=== PATIENT | male | born 1985 | race Caucasian/White ===

== ENCOUNTER 2016-05-06 07:08 | Emergency (ER) | payer BC, OTHER ==
[2016-05-06] MEDS ORDERED: NORMAL SALINE 10 ML SYRINGE FLUSH IVP PRN (07:30)
[2016-05-06] MEDS ORDERED: Sodium Chloride 0.9% 1,000 ML PRIMARY IV ONE (07:30)
[2016-05-06 08:06] LABS: BASOPHILS # (AUTO) 0.01 10*3/UL; BASOPHILS % (AUTO) 0.1 % (0-1); EOSINOPHILS % (AUTO) 0.1 % (0-8); IMM GRAN % (AUTO) 0.1 % (0-5); IMM GRAN# (AUTO) 0.01 10*3/UL; LYMPHOCYTES % (AUTO) 26.4 % (10-50)
[2016-05-06 08:10] LABS: BILIRUBIN,TOTAL 0.5 mg/dL (0.3-1.2); BUN/CREATININE RATIO 20.52 (6-20); CALCIUM 10.9 mg/dL (8.7-10.7); CREATININE 1.9 mg/dL (0.70-1.50); POTASSIUM 3.9 meq/L (3.8-5.2); TOTAL PROTEIN 6.1 g/dL (6.1-8.0)
[2016-05-06 08:11] LABS: HEMATOCRIT 38.8 % (42.0-52.0); HEMOGLOBIN 12.9 g/dL (14.0-18.0); LYMPHOCYTES # (AUTO) 2.39 10*3/uL; MEAN CORPUSCULAR HEMOGLOBIN 23.7 PG (27-31); MEAN CORPUSCULAR HGB CONC 33.2 g/dL (33-37); MONOCYTES # (AUTO) 1.22 10*3/UL (0.3-0.8); MONOCYTES % (AUTO) 13.5 % (5-15); NEUTROPHILS % (AUTO) 59.8 % (50-80); RDW COEFFICIENT OF VARIATION 16.8 % (11.5-14.5); RED BLOOD COUNT 5.44 10^6/uL (4.70-6.10); WHITE BLOOD COUNT 9.04 10^3/uL (4.8-10.8)
[2016-05-06 08:17] LABS: PLATELET MORPHOLOGY COMMENT NORMAL MORPHOLOGY (NORM)
[2016-05-06] MEDS ORDERED: LIDOCAINE HCL 2 % 10 ML JELLY URO-JECT TOPICAL ONE ×2 (08:41→11:08)
[2016-05-06 08:53] LABS: BILIRUBIN,URINE NEGATIVE (NEG); CLARITY,URINE CLOUDY (CLEAR); GLUCOSE, URINE (UA) NEGATIVE (NEG); LEUKOCYTE ESTERASE ,URINE MODERATE (NEG); NITRATE,URINE NEGATIVE (NEG); OCCULT BLOOD,URINE LARGE (NEG); PROTEIN,URINE >300 mg/dl (NEG); UROBILINOGEN,URINE 0.2 EU/dL (0.2)
--- NOTE | 2016-05-06 08:55 | PDOC ---
Male Genitourinary Problem HPI - General Chief Complaint: Genitourinary Complaint Stated Complaint: BLOOD IN URINE Date Seen by Provider: 05/06/16 Time Seen by Provider: 07:12 Source: POSITIVE: Other (Mother and father) Exam Limitations: POSITIVE: Physical impairment (Patient is autistic and has prominent mental developmental delay. He is nonverbal. Mother and father gave past medical history and review of systems.) Nurse's Notes Reviewed & Considered: Yes - History of Present Illness Initial Comments: The patient is a 31-year-old male who was brought to the emergency room by his mother and father, with home the patient lives. According to parents, the patient has a history of several congenital anomalies and is nonverbal. Mother states that the patient has "the mentality of a 4-year-old", and patient is nonverbal. Mother states the patient has autism. Mother states that the patient had a temperature of 101 a few days ago. This resolved, according to the mother, but for the past day or so the patient has been urinating frequently. The patient normally has nocturnal urinary incontinence, but the mother states that this is worsened last night. Mother states that she noted that the patient has had blood in his urine this evening and has "passed blood clots"in his urine this evening. 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 He does have a seizure disorder. 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 Child had a right ureteral reimplantation procedure done at 2 months of age. He's also had bilateral hip osteotomies and bilateral club feet surgery. Mother states that the patient has been somewhat more agitated than normal. Body Location Affected: REPORTS: Genitalia (Hematuria and urinary frequency as above) Timing: REPORTS: Gradual Duration: <24 hours Severity: Moderate Quality: REPORTS: Other (No definite pain) Context: DENIES: Drug Use, Lifting, Trauma, Recent Surgery, Other (please comment) Sexual History: REPORTS: Non-Contributory Associated Symptoms: REPORTS: Frequency, Blood in Urine Similar Symptoms Previously: No Recent Care Received: REPORTS: Denies Any Prior Injuries Related to Current Complaint?: No - Patient Home Medications Home Medications: Home Medications Somatropin [Nutropin Aq] 1.4 ml SUBCUT QD each 05/06/14 Testosterone Cypionate 10 mg IM WEEKLY #1 vial 10/20/14 Divalproex Sodium [Depakote] 1,000 mg PO BID tab 01/26/16 Epinephrine [Epipen 2-Wesley] 0.3 mg IM ONCE #1 ml 03/29/15 Ferrous Sulfate [Feosol Tab] 325 mg PO BID #180 tab 03/29/15 Hydrocortisone Sod Succinate [Solu-Cortef] 100 mg IM Q4-6H PRN #2 vial 03/29/15 Multivitamin [Multi-Vitamin Daily] 1 each PO QD #90 tab 03/29/15 Syringe W-O Needl,Insulin,1 ml [Luer-Jina Syringe] 1 each MC QD #30 box 03/29/15 Triamcinolone Acetonide 2 spr NS DAILY PRN #1 bottle 03/29/15 [place], Disposable [Hypodermic Needle] 1 each MC PRN #30 unit 03/30/15 Albuterol/Ipratrop Neb Soln [Duoneb Neb Soln] 1 vial NEB Q4-6HRSPRN #1 box 11/14 Gentamicin Sulfate 2 drp LEFT EYE Q6H #1 bottle 11/15/15 Hydrocortisone 5 mg PO QPM #90 tab 03/09/16 Hydrocortisone 10 mg PO QAM #90 tab 03/09/16 Levothyroxine Sodium 1 tab PO DAILY #30 tab 04/19/16 Acetaminophen 2 tab PO QAM PRN tab 05/01/16 Calcium Carbonate/Vitamin D3 [Calcium 600-Vit D3 800 Tablet] 1 each PO QAM tab 05/01/16 Cetirizine HCl [24hour Allergy] 10 mg PO QAM tab 05/01/16 Lactobacillus Combo No.11 [Probiotic] 1 each PO QD cap 05/01/16 [place]-3S/Dha/Epa/Fish Oil [Fish Oil 1,200 Mg Softgel] 1 each PO QAM cap Psyllium Husk [Psyllium Fiber] 0.52 gm PO QD cap 05/01/16 Vitamin K2 100 mcg PO QD tab 05/01/16 - Patient Allergies Allergies/Adverse Reactions: Allergies Allergy/AdvReac Type Severity Reaction Status Date / Time pertussis vaccine,adsorbed Allergy Severe anaphalaxyi Verified 05/06/16 07:11 s venom-honey bee Allergy Severe anaphalaxyi Verified 05/06/16 07:11 s prednisone AdvReac Intermediate rash Verified 05/06/16 07:11 testosterone AdvReac Intermediate severe Verified 05/06/16 07:11 anger and seizures Past Medical History - heen HEENT History: Denies History Cardiovascular History: Denies History Respiratory History: Pneumonia, Sleep Apnea Additional Respiratory History: chronic pneumonia, doesn't tolerate cpap Gastrointestinal History: Denies History Additional Genitourinary History: born with only R kidney, Has had ureter repair 2x Additional Endocrine History: Panhypopituitarism Prosthesis or Implant: No Additional Musculoskeletal History: kyphosis, scoliosis, planter fascitis, b/l club feet (repaired), mild arthritis, b/l hip and ankle malformation Neurological History: Seizures Additional Neurological History: autism, mental retardation, nonverbal Blood Disorders: Denies History Psychiatric History: Autism Cancer History: Denies History In Past Year Been Physically Harmed or Verbally Threatened: No History of MDRO: No Tobacco Use: Never Smoker Alcohol Use: None Substance Use Type: None Previous Surgical History: Yes Type / Date of Surgery: multiple repairs of duodenal atresia, bilateral ankle repair, aj osteotomy b/l hips, dental surgery, 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), VUR/ureter repair Significant Family History: No pertinent family hx Past Medical History Reviewed: Reviewed - No Changes ROS - Limitations ROS Limitations: No Limitations Constitution: REPORTS: Fever Cardiovascular: REPORTS: Denies Cardiac Symptoms Respiratory: REPORTS: Denies Resp Symptoms Neurological: REPORTS: Denies Neuro Symptoms Gastrointestinal: REPORTS: Denies GI Symptoms Endocrine: REPORTS: Denies Symptoms Musculoskeletal: REPORTS: Denies MS Symptoms Genitourinary: REPORTS: Denies Symptoms Eyes: REPORTS: Denies Symptoms ENT: REPORTS: Denies Symptoms Skin: REPORTS: Denies Skin Symptoms Lympathic: REPORTS: Denies Lympathic Symptoms Immunologic: POSITIVE: Denies Symptoms Psychiatric: POSITIVE: Denies Psych Symptoms Male Genitourinary Exam - General Appearance General Appearance: POSITIVE: Alert, No Acute Distress, No Evidence of Trauma, Uncooperative. NEGATIVE: Cooperative (Mental developmental delay and autism) - Abdomen Abdomen: Soft: (All Quadrants), Normal Bowel Sounds: (All Quadrants), Denies Tenderness: (All Quadrants), No Splenomegaly: (All Quadrants), No Hepatomegaly: (All Quadrants), No Guarding: (All Quadrants), No Rebound: (All Quadrants), No Palpable Pulse: (All Quadrants), No Palpabale Mass: (All Quadrants), No Distention: (All Quadrants), No Rigidity: (All Quadrants) - Genital / Rectal Genitals: POSITIVE: Normal Palp. of Testicles, Uncircumcised, Other ( Hypogonadism; uncircumcised; foreskin retracts easily). NEGATIVE: Urethral Discharge, Testicular Tenderness, Epididymal Tenderness, Scrotal Swelling, Hernia Mass, Examined While Standing - HEENT HEENT: POSITIVE: Head Inspection Nml, Eyes Inspection Nml, Ears Inspection Nml, Nose Inspection Nml, Oral/Dental Inspect. Nml, Pharynx Inspect. Nml, PERRL, EOMI - Neck Neck: POSITIVE: Normal Inspection, No Apparent Injury - Respiratory Respiratory: POSITIVE: No Respiratory Distress, Breath Sounds Normal, Chest Non- Tender - Cardiovascular Cardiovascular: POSITIVE: Regular Rate and Rhythm, Heart Sounds Normal, Equal Pulses, Strong Pulses Peripheral Pulses: Radial (R): 2+, Radial (L): 2+ - Back Back: POSITIVE: Normal Inspection. NEGATIVE: CVA Tenderness (L) - Extremities Extremity: Non-Tender: (All Extremities), Normal ROM: (All Extremities), Normal Inspection: (All Extremities) - Neurological / Psychological Neurological: POSITIVE: cost consultant Normal As Tested, Motor Normal, Other (Mental developmental delay, congenital) Male Genitourinary Progress - Results Reviewed by me Xrays/CTs/US Reviewed by me: Yes Radiology Findings: CT scan abdomen and pelvis without contrast ordered Lab Results Reviewed: Yes (CBC normal, BUN 39 and creatinine 1.9; on 06/01/2014 BUN was 32 and creatin) Lab Results: Laboratory Results 05/06/16 Range/Units 07:45 WBC 9.04 (4.8-10.8) 10^3/uL RBC 5.44 (4.70-6.10) 10^6/uL Hgb 12.9 L (14.0-18.0) g/dL Hct 38.8 L (42.0-52.0) % MCV 71.3 L (80-90) FL MCH 23.7 L (27-31) PG MCHC 33.2 (33-37) g/dL RDW Std Deviation 43.0 (39-50) fL RDW Coeff of Jair 16.8 H (11.5-14.5) % Plt Count 111 L (140-350) 10*3/uL Immature Gran % (Auto) 0.1 (0-5) % Neut % (Auto) 59.8 (50-80) % Lymph % (Auto) 26.4 (10-50) % [place] % (Auto) 13.5 (5-15) % Eos % (Auto) 0.1 (0-8) % Baso % (Auto) 0.1 (0-1) % Immature Gran # (Auto) 0.01 10*3/UL Neut # (Auto) 5.40 10*3/UL Lymph # (Auto) 2.39 10*3/uL [place] # (Auto) 1.22 H (0.3-0.8) 10*3/UL Eos # (Auto) 0.01 10*3/UL Baso # (Auto) 0.01 10*3/UL WBC Morphology Comment Normal morphology (NORM) Plt Morphology Comment Normal morphology (NORM) RBC Morph Comment Normal morphology (NORM) Sodium 135 (135-145) meq/L Potassium 3.9 (3.8-5.2) meq/L Chloride 97 L (98-112) meq/L Carbon Dioxide 29 (23-33) meq/L Anion Gap 9 (5-20) BUN 39 H (7-22) mg/dL Creatinine 1.9 H (0.70-1.50) mg/dL Estimated GFR 42 (>60 ml/min/1.73m(2)) BUN/Creatinine Ratio 20.52 H (6-20) Glucose 91 (78-110) mg/dL Calculated Osmolality 288.0 (267-292) mOsm/kg Calcium 10.9 H (8.7-10.7) mg/dL Total Bilirubin 0.5 (0.3-1.2) mg/dL AST 20 L (21-57) IU/L ALT 24 (21-72) IU/L Alkaline Phosphatase 38 (38-126) IU/L Total Protein 6.1 (6.1-8.0) g/dL Albumin 3.6 (3.5-4.8) g/dL Globulin 2.5 (2.50-4.10) g/dL Albumin/Globulin Ratio 1.40 (1.3-2.0) mg/g - Patient's Progress Pain Medication Addressed: POSITIVE: Not Applicable School/Work Release Addressed: POSITIVE: Not Applicable Re-Examine Time:: 09:00 Re-Examine Comment: Patient hydrated with a liter of normal saline. Catheterized urine specimen was grossly cloudy with some blood clot; urinalysis is pending. CBC is normal. CMP shows a BUN of 39 with a creatinine of 1.9, on 06/01/2014 BUN was 32 and creatinine is 1.3. CT scan abdomen and pelvis without contrast ordered; patient medicated with 2 mg of IV Ativan prior to being taken to CT scan. Patient turned over to ER physician, Dr. Ward, who comes on duty at 9 AM. Status: POSITIVE: Unchanged, Re-Examined - Consult Counseled: POSITIVE: Family, RE: Lab Results, RE: DX, RE: Need for F/U Patient Care Time - Estimated PCT Patient Care Time (In Minutes): 60 Vital Signs - Recent Vital Signs Vital Signs: Vital Signs (Last 8 hours) Temp Pulse Resp BP Pulse Ox 05/06/16 07:08 97.0 F 102 H 18 109/86 92 - VS Reviewed Vital Signs Reviewed: Yes Discharge Clinical Impression: Hematuria, Renal failure, Developmental delay, profound Condition: Fair Care Transferred To: , 9 AM, 05/06/2016
[2016-05-06] MEDS ORDERED: LORazepam 2 MG/1 ML VIAL IVP ONE ×2 (08:57→09:23)
[2016-05-06] MEDS ORDERED: LORazepam 2 MG/1 ML VIAL ONE (08:59)
[2016-05-06 09:11] LABS: URINE SAMPLE TYPE CATH SPECIMEN
[2016-05-06 09:13] LABS: BACTERIA,URINE FEW; RBC,URINE >100 /hpf; URINE CRYSTALS FEW; WBC,URINE 50-60
--- NOTE | 2016-05-06 09:23 | PDOC ---
Transfer of Care - Care Accepted Time Care Transferred: 09:19 Report from Transferring Physician Received: Yes MDM / ED Course: I assumed care of this patient at the end of Dr. Quinonez's shift. CBC was reviewed showing normal white count slight anemia with hemoglobin of 12. Potential metabolic panel showed a creatinine of 1.9 and a UA and a 39. His electrolytes were unremarkable liver functions were within normal limits. CT scan is pending. Patient has large amount of blood in his urine, and increased frequency of urination, which is the reason he presented here to the emergency department. He had fevers of 100 to 101 degrees 3 days ago but afebrile at this time. Patient has mental developmental delay, physical impairment, and is nonverbal. Mother has noticed blood in his urine. No apparent tenderness to his abdomen. For the remainder of history of present illness please see Dr. Quinonez's dictation. CT scan shows enlarged kidney on the right without hydronephrosis. There is an extrarenal right renal pelvis and dilation of the right ureter there is no focal stone identified. I discussed this patient with Dr. Bonilla, the business solution analyst urologist at [facility], who is suggesting patient needs to be scoped and possibly stented. With his congenital lack of left kidney and increasing creatinine or correction of his right kidney is imperative. Therefore we are transferring this patient to a higher level of care. I will able to contact Dr. Hartley, the on-call hospitalist at [facility]. She will be direct admitting this patient with Dr. Bonilla consulting. ER course: Patient had received Ativan prior to my assuming care. His oxygenation dropped and he was started on nonrebreather mask to keep his oxygen saturations in the 90s. He received IV ciprofloxacin, normal saline. He is being transferred in stable condition. Home Medications: Home Medications Somatropin [Nutropin Aq] 1.4 ml SUBCUT QD each 05/06/14 Testosterone Cypionate 10 mg IM WEEKLY #1 vial 10/20/14 Divalproex Sodium [Depakote] 1,000 mg PO BID tab 03/29/15 Epinephrine [Epipen 2-Wesley] 0.3 mg IM ONCE #1 ml 03/29/15 Ferrous Sulfate [Feosol Tab] 325 mg PO BID #180 tab 03/29/15 Hydrocortisone Sod Succinate [Solu-Cortef] 100 mg IM Q4-6H PRN #2 vial 03/29/15 Multivitamin [Multi-Vitamin Daily] 1 each PO QD #90 tab 03/29/15 Syringe W-O Needl,Insulin,1 ml [Luer-Jina Syringe] 1 each MC QD #30 box 03/29/15 Triamcinolone Acetonide 2 spr NS DAILY PRN #1 bottle 03/29/15 [place], Disposable [Hypodermic Needle] 1 each MC PRN #30 unit 03/30/15 Albuterol/Ipratrop Neb Soln [Duoneb Neb Soln] 1 vial NEB Q4-6HRSPRN #1 box 11/14 Gentamicin Sulfate 2 drp LEFT EYE Q6H #1 bottle 11/15/15 Hydrocortisone 5 mg PO QPM #90 tab 03/09/16 Hydrocortisone 10 mg PO QAM #90 tab 03/09/16 Levothyroxine Sodium 1 tab PO DAILY #30 tab 04/19/16 Acetaminophen 2 tab PO QAM PRN tab 05/01/16 Calcium Carbonate/Vitamin D3 [Calcium 600-Vit D3 800 Tablet] 1 each PO QAM tab 05/01/16 Cetirizine HCl [24hour Allergy] 10 mg PO QAM tab 05/01/16 Lactobacillus Combo No.11 [Probiotic] 1 each PO QD cap 05/01/16 [place]-3S/Dha/Epa/Fish Oil [Fish Oil 1,200 Mg Softgel] 1 each PO QAM cap Psyllium Husk [Psyllium Fiber] 0.52 gm PO QD cap 05/01/16 Vitamin K2 100 mcg PO QD tab 05/01/16 Allergies/Adverse Reactions: Allergies pertussis vaccine,adsorbed Allergy (Severe, Verified 05/06/16 07:11) anaphalaxyis venom-honey bee Allergy (Severe, Verified 05/06/16 07:11) anaphalaxyis prednisone Adverse Reaction (Intermediate, Verified 05/06/16 07:11) rash IV form; redness, irritation testosterone Adverse Reaction (Intermediate, Verified 05/06/16 07:11) severe anger and seizures testosterone enanthate- Vital Signs Reviewed: Yes Nurse's Notes Reviewed & Considered: Yes - Pending Patient Care Items Pending Patient Care Items: POSITIVE: CT / MRI Results - Expected Patient Outcome Tentative Impression of Patient: Hematuria and possible urinary tract infection Expected Disposition: POSITIVE: Home - Results Reviewed Lab Results: Laboratory Results 05/06/16 05/06/16 Range/Units 07:45 08:45 WBC 9.04 (4.8-10.8) 10^3/uL RBC 5.44 (4.70-6.10) 10^6/uL Hgb 12.9 L (14.0-18.0) g/dL Hct 38.8 L (42.0-52.0) % MCV 71.3 L (80-90) FL MCH 23.7 L (27-31) PG MCHC 33.2 (33-37) g/dL RDW Std Deviation 43.0 (39-50) fL RDW Coeff of Jair 16.8 H (11.5-14.5) % Plt Count 111 L (140-350) 10*3/uL Immature Gran % (Auto) 0.1 (0-5) % Neut % (Auto) 59.8 (50-80) % Lymph % (Auto) 26.4 (10-50) % [place] % (Auto) 13.5 (5-15) % Eos % (Auto) 0.1 (0-8) % Baso % (Auto) 0.1 (0-1) % Immature Gran # (Auto) 0.01 10*3/UL Neut # (Auto) 5.40 10*3/UL Lymph # (Auto) 2.39 10*3/uL [place] # (Auto) 1.22 H (0.3-0.8) 10*3/UL Eos # (Auto) 0.01 10*3/UL Baso # (Auto) 0.01 10*3/UL WBC Morphology Comment Normal morphology (NORM) Plt Morphology Comment Normal morphology (NORM) RBC Morph Comment Normal morphology (NORM) Sodium 135 (135-145) meq/L Potassium 3.9 (3.8-5.2) meq/L Chloride 97 L (98-112) meq/L Carbon Dioxide 29 (23-33) meq/L Anion Gap 9 (5-20) BUN 39 H (7-22) mg/dL Creatinine 1.9 H (0.70-1.50) mg/dL Estimated GFR 42 (>60 ml/min/1.73m(2)) BUN/Creatinine Ratio 20.52 H (6-20) Glucose 91 (78-110) mg/dL Calculated Osmolality 288.0 (267-292) mOsm/kg Calcium 10.9 H (8.7-10.7) mg/dL Total Bilirubin 0.5 (0.3-1.2) mg/dL AST 20 L (21-57) IU/L ALT 24 (21-72) IU/L Alkaline Phosphatase 38 (38-126) IU/L Total Protein 6.1 (6.1-8.0) g/dL Albumin 3.6 (3.5-4.8) g/dL Globulin 2.5 (2.50-4.10) g/dL Albumin/Globulin Ratio 1.40 (1.3-2.0) mg/g Ur Collection Type Cath specimen Urine Color Yellow Urine Clarity Cloudy (CLEAR) Urine pH 7.0 (5.0-8.5) Ur Specific [place] 1.020 (1.005-1.030) Urine Protein >300 (NEG) mg/dl Urine Glucose (UA) Negative (NEG) mg/dL Urine Ketones Negative (NEG) Urine Occult Blood Large H (NEG) Urine Nitrate Negative (NEG) Urine Bilirubin Negative (NEG) Urine Urobilinogen 0.2 (0.2) EU/dL Ur Leukocyte Esterase Moderate (NEG) Urine RBC >100 (NONE) /hpf Urine WBC 50-60 (NONE) Ur Squamous Epith Cells None (NONE) Ur Renal Epithelial Cell None (NONE) Urine Crystals Few Urine Bacteria Few (NONE) Urine Casts None (NONE) Urine Mucus None (NONE) Urine Trichomonas None (NONE) Urine Yeast None (NONE) Ur Culture Indicated? Culture set Patient Care Time - Estimated PCT Patient Care Time (In Minutes): 20 Vital Signs - Recent Vital Signs Vital Signs: Vital Signs (Last 8 hours) Temp Pulse Resp BP Pulse Ox 05/06/16 09:45 102 H 16 97 05/06/16 09:40 102 H 16 86 05/06/16 09:35 97.1 F 102 H 16 67 05/06/16 07:08 97.0 F 102 H 18 109/86 92 Discharge Clinical Impression: Hematuria, Renal failure, Developmental delay, profound Discharge Disposition: Transferred to Tertiary Care Facility Condition: Fair Follow Up With: GENO TRAMMELL [Primary Care Provider] - Date Decision to Transfer to Another Facility: 05/06/16 Time Decision to Transfer to Another Facility: 11:03
[2016-05-06 09:47] VITALS: RESP 16
--- NOTE | 2016-05-06 10:23 | DI ---
HISTORY: Hematuria. Patient is sedated. COMPARISON: None available. TECHNIQUE: Contiguous axial images of the abdomen and pelvis were obtained and submitted for interpr etation. FINDINGS: The patient has pectus carinatum. The sternum is partially unfused. Limited sections of the lung bases demonstrate no focal pulmonary mass. The unenhanced liver and spleen return a normal attenuation. The gallbladder is not clearly visualiz ed, and probably significantly collapsed. The pancreas is slightly bulky, and could benefit from laboratory correlation. The right kidney is grossly unremarkable. The left kidney is not clearly identified. The right uret er is dilated, and thickened to the level of the urinary bladder. However, no radiopaque calculus is identified. There is moderate to severe constipation. There is no obstruction. There is no free air or free flu id. The appendix is not clearly visualized. There are no secondary signs of appendicitis. The unenhanced aorta and IVC demonstrate no acute findings. The adrenal glands are poorly imaged. The GE junction is thickened, and the stomach is collapsed and residue. 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 However, muc opolysaccharidosis, or achondroplasia can have a similar appearance. There is evidence of prior surg suzi, and this could also be due to treatment for prior SCFE. IMPRESSION: 1. Enlarged right kidney without hydronephrosis. There is an extrarenal right renal pelvis, and dila tation of the right ureter however, no focal ureteric calculus is identified. Recently passed stone can have this appearance. Rarer considerations would include ureteritis, urothelial tumors, or pyelo ureteritis cystica. 2. Overall features favor a syndromic cause. The left kidney is not visualized. If this is congenit ally absent, this reinforces the possibility.
[2016-05-06] MEDS ORDERED: Ciprofloxacin 400mg (Premix) 400 MG in Dextrose 1 BAG IV ONE (10:38)
[2016-05-06] MEDS ORDERED: HYDROCORTISONE 100 MG/2 ML IVP ONE (11:22)
[2016-05-06 11:53] VITALS: TEMP 96.5
== END 2016-05-06 11:40 | disposition short-term general hospital (02) ==
LOC: ER 07:08
DX: N17.9 Acute kidney failure, unspecified (principal); R31.9 Hematuria, unspecified; F84.0 Autistic disorder
CPT/HCPCS: 36415; 74176; 80053; 81001; 81003; 85025; 87040; 87088; 96365; 96375; 96376; 99285; J0744; J1720; J2060; J7030

== ENCOUNTER → 2016-05-10 | Outpatient (CLI) | payer BC, OTHER ==
[2016-05-10 07:42] LABS: HEMATOCRIT 40.6 % (42.0-52.0); HEMOGLOBIN 13.1 g/dL (14.0-18.0); MEAN CORPUSCULAR HEMOGLOBIN 23.1 PG (27-31); MEAN CORPUSCULAR HGB CONC 32.3 g/dL (33-37); MEAN PLATELET VOLUME 10.2 FL (7.4-12.2); RDW COEFFICIENT OF VARIATION 16.6 % (11.5-14.5); RED BLOOD COUNT 5.68 10^6/uL (4.70-6.10); WHITE BLOOD COUNT 7.18 10^3/uL (4.8-10.8)
[2016-05-10 07:51] LABS: ASPARTATE AMINO TRANSFERASE 20 IU/L (21-57); BILIRUBIN,TOTAL 0.3 mg/dL (0.3-1.2); BLOOD UREA NITROGEN 36 mg/dL (7-22); BUN/CREATININE RATIO 25.71 (6-20); CALCIUM 10.2 mg/dL (8.7-10.7); CHLORIDE 102 meq/L (98-112); CREATININE 1.4 mg/dL (0.70-1.50); EST GLOMERULAR FILTRATION > 60 (>60 ml/min/1.73m(2)); GLUCOSE 74 mg/dL (78-110); MAGNESIUM 1.5 mg/dL (1.6-2.4); POTASSIUM 3.9 meq/L (3.8-5.2); SODIUM 138 meq/L (135-145); TOTAL PROTEIN 6.4 g/dL (6.1-8.0)
[2016-05-10 08:09] LABS: PLATELET MORPHOLOGY COMMENT NORMAL MORPHOLOGY (NORM)
[2016-05-10 08:10] LABS: BAND NEUTROPHILS % 2 % (0-10); BASOPHILS % (MANUAL) 0 % (0-1); EOSINOPHILS % (MANUAL) 2 % (0-8); LYMPHOCYTES % (MANUAL) 53 % (10-50); MONOCYTES % (MANUAL) 1 % (0-12); NEUTROPHILS % (MANUAL) 42 % (50-80)
== END ==
LOC: LAB 07:21
PROVIDERS: ATTEND Pediatrics Pediatric Endocrinology
DX: G40.812 Lennox-Gastaut syndrome, not intractable, without status epilepticus (principal); D69.6 Thrombocytopenia, unspecified; R79.89 Other specified abnormal findings of blood chemistry; E63.9 Nutritional deficiency, unspecified; M62.81 Muscle weakness (generalized)
CPT/HCPCS: 36415; 80053; 80164; 82306; 83735; 85007

== ENCOUNTER → 2016-06-19 | Outpatient (CLI) | payer BC, OTHER ==
[2016-06-19 17:34] LABS: BASOPHILS # (AUTO) 0.01 10*3/UL; BASOPHILS % (AUTO) 0.1 % (0-1); EOSINOPHILS # (AUTO) 0.04 10*3/UL; EOSINOPHILS % (AUTO) 0.5 % (0-8); HEMATOCRIT 39.9 % (42.0-52.0); HEMOGLOBIN 12.7 g/dL (14.0-18.0); LYMPHOCYTES # (AUTO) 3.49 10*3/uL; MEAN CORPUSCULAR HEMOGLOBIN 23.4 PG (27-31); MEAN CORPUSCULAR HGB CONC 31.8 g/dL (33-37); MEAN CORPUSCULAR VOLUME 73.5 FL (80-90); MEAN PLATELET VOLUME 10.3 FL (7.4-12.2); MONOCYTES # (AUTO) 0.51 10*3/UL (0.3-0.8); MONOCYTES % (AUTO) 5.8 % (5-15); NEUTROPHILS # (AUTO) 4.72 10*3/UL; NEUTROPHILS % (AUTO) 53.6 % (50-80); RED BLOOD COUNT 5.43 10^6/uL (4.70-6.10)
[2016-06-19 17:35] LABS: PLATELET MORPHOLOGY COMMENT NORMAL MORPHOLOGY (NORM); RBC MORPHOLOGY COMMENT NORMAL MORPHOLOGY (NORM); WBC MORPHOLOGY COMMENT NORMAL MORPHOLOGY (NORM)
--- NOTE | 2016-06-19 17:57 | DI ---
PA /LATERAL CHEST X-RAY, 06/19/2016 5:27 PM : Clinical History: Cough. Previous Exam: 11/15/2015. There is no acute soft tissue or bony abnormality. This patient has a developmental bony changes invo lving the ribs and cervical and thoracic spine. 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 Heart size is normal. There is slight incr eased density behind the heart in the left lower lobe that was not present on the prior exam. There i s also "tram tracking" that typically is associated with chronic bronchitis or bronchiectasis. Medias tinal structures are normal. There are no pulmonary nodules. Reading: There is a patchy density in the left lower lobe that may represent a very early pneumonia. There is evidence of underlying chronic bronchitis or bronchiectasis possibly on the basis of chronic aspirati on.
== END ==
LOC: RAD 17:19
PROVIDERS: ATTEND Nurse Practitioner Family
DX: R05 Cough (principal); J18.1 Lobar pneumonia, unspecified organism
CPT/HCPCS: 36415; 71020; 85025

== ENCOUNTER → 2016-08-03 | Outpatient (CLI) | payer BC, OTHER ==
[2016-08-03 14:08] LABS: BASOPHILS # (AUTO) 0 10*3/UL; BASOPHILS % (AUTO) 0 % (0-1); EOSINOPHILS # (AUTO) 0.03 10*3/UL; EOSINOPHILS % (AUTO) 0.5 % (0-8); HEMATOCRIT 41.5 % (42.0-52.0); HEMOGLOBIN 13.3 g/dL (14.0-18.0); LYMPHOCYTES # (AUTO) 2.32 10*3/uL; MEAN CORPUSCULAR HEMOGLOBIN 23.4 PG (27-31); MEAN CORPUSCULAR VOLUME 72.9 FL (80-90); MEAN PLATELET VOLUME 10.3 FL (7.4-12.2); MONOCYTES # (AUTO) 0.28 10*3/UL (0.3-0.8); MONOCYTES % (AUTO) 4.6 % (5-15); NEUTROPHILS # (AUTO) 3.39 10*3/UL; NEUTROPHILS % (AUTO) 56.2 % (50-80); RED BLOOD COUNT 5.69 10^6/uL (4.70-6.10)
[2016-08-03 14:22] LABS: PLATELET MORPHOLOGY COMMENT NORMAL MORPHOLOGY (NORM); RBC MORPHOLOGY COMMENT NORMAL MORPHOLOGY (NORM); WBC MORPHOLOGY COMMENT NORMAL MORPHOLOGY (NORM)
== END ==
LOC: LAB 13:57
PROVIDERS: ATTEND Nurse Practitioner Family
DX: Q89.7 Multiple congenital malformations, not elsewhere classified (principal); R23.3 Spontaneous ecchymoses; E03.8 Other specified hypothyroidism; I73.00 Raynaud's syndrome without gangrene
CPT/HCPCS: 36415; 85025